=== PATIENT | female | born 2000 | race Caucasian/White ===

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

== ENCOUNTER 2021-02-10 15:49 | Emergency (ER) | payer OTHER ==
[2021-02-10 16:12] VITALS: BP 143/98; PULSE 79
[2021-02-10] MEDS ORDERED: Sodium Chloride 0.9% 10 ML Syringe FLUSH PRN (16:27)
[2021-02-10] MEDS ORDERED: HYDROmorphone 0.5 MG/0.5 ML Syringe IVPUSH ONE (16:28)
[2021-02-10] MEDS ORDERED: Sodium Chloride 0.9% 1,000 ML IV STA (16:28)
[2021-02-10] MEDS ORDERED: Ondansetron 4 MG/2 ML SDV IVPUSH ONE (16:28)
--- NOTE | 2021-02-10 16:55 | EDM.PDOC ---
ED HPI GENERAL MEDICAL PROBLEM - General Chief Complaint: Abdominal Pain Stated Complaint: ABDOMINAL PAIN Time Seen by Provider: 02/10/21 16:12 Source of Information: Reports: Patient, RN Notes Reviewed History Limitations: Reports: No Limitations - History of Present Illness INITIAL COMMENTS - FREE TEXT/NARRATIVE: Patient is a 20-year-old female presenting to ER for evaluation of right lower quadrant abdominal pain with associated nausea and vomiting. Symptoms began this morning. Reports they came on gradually. She reports urge to void, but is only able to go a few drops when she tries to go. She also reports the urge to have a bowel movement, however is unable to go when she tries. Reports last bowel movement was yesterday and that it was normal. She is on Nexplanon for control, but still feels there is a possibility that she could be . Reports that she was having problems with "hypoglycemia" yesterday which caused her to go home from work, however she was having no abdominal pain at that time. She denies any known fever, but states she has felt chilled. She has no history of previous abdominal surgeries. Denies any history of ovarian c ysts. Abdomen Pain Score (Numeric/FACES): 8 - Related Data Allergies Allergy/AdvReac Type Severity Reaction Status Date / Time animal dander Allergy Hives Verified 02/10/21 16:12 pollen extracts Allergy Shortness Verified 02/10/21 16:12 of Breath Home Meds: Home Meds Montelukast [Singulair] 10 mg PO BEDTIME 08/31/16 [History] Venlafaxine HCl [Venlafaxine ER] 225 mg PO DAILY 12/11/19 [History] Divalproex Sodium [Depakote] 250 mg PO DAILY 03/24/20 [History] Doxazosin [Cardura] 1 mg PO DAILY 03/24/20 [History] Ondansetron [Zofran ODT] 1 tab PO Q8H PRN #10 tab.dis 03/24/20 [Rx] Albuterol [Ventolin HFA] 2 puff INH Q6H PRN #1 inh 05/18/20 [Rx] Fluticasone Propion/Salmeterol [Advair 250-50 Diskus] 1 puff IH BID #1 blst.w.dev 05/18/20 [Rx] clonazePAM [Clonazepam] 0.5 mg PO BID 06/28/20 [History] Contro Implantn 1 ASDIRECTED 08/14/20 [History] Hydrocodone/Acetaminophen [Hydrocodone-Acetamin 5-325 mg] 1 each PO Q4H PRN #8 tablet 02/10/21 [Rx] Ondansetron [Zofran ODT] 4 mg PO Q6H PRN #10 tab.dis 02/10/21 [Rx] Past Medical History HEENT History: Reports: Allergic Rhinitis Cardiovascular History: Reports: None Respiratory History: Reports: Asthma Other Respiratory History: allergies Gastrointestinal History: Reports: None Genitourinary History: Reports: Renal Calculus, Other (See Below) [employer] 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 Musculoskeletal History: Reports: Other (See Below) Other Musculoskeletal History: small ACL tear of the right knee Neurological History: Reports: Seizure Other Neuro History: "trauma seizures" Psychiatric History: Reports: Anxiety, Bipolar, Depression, PTSD, Suicidal Ideation Other Psychiatric History: manic depression Endocrine/Metabolic History: Reports: None, Other (See Below) Other Endocrine/Metabolic History: fluctuating blood sugars Hematologic History: Reports: None Immunologic History: Reports: None Oncologic (Cancer) History: Reports: None Dermatologic History: Reports: None - Infectious Disease History Infectious Disease History: Reports: Novel Coronavirus - Past Surgical History HEENT Surgical History: Reports: None GI Surgical History: Reports: None Social & Family History - Family History Family Medical History: No Pertinent Family History - Tobacco Use Used Tobacco, but Quit: No - Caffeine Use Caffeine Use: Reports: None - Recreational Drug Use Recreational Drug Use: Yes Recreational Drug Type: Reports: Marijuana/Hashish Recreational Drug Use Frequency: Weekly - Living Situation & Occupation Living situation: Reports: Single, with Family Occupation: Employed ([employer] ED ROS GENERAL - Review of Systems Review Of Systems: Comprehensive ROS is negative, except as noted in HPI. ED EXAM, GI/ABD - Physical Exam Exam: See Below Exam Limited By: No Limitations General Appearance: Alert, WD/WN, No Apparent Distress Respiratory/Chest: No Respiratory Distress, Lungs Clear, Normal Breath Sounds, No Accessory Muscle Use, Chest Non-Tender Cardiovascular: Normal Peripheral Pulses, Regular Rate, Rhythm, No Edema, No Gallop, No JVD, No Murmur, No Rub GI/Abdominal Exam: Normal Bowel Sounds, Soft, No Organomegaly, No Distention, No Abnormal Bruit, No Mass, Pelvis Stable, Tender (localized RLQ.). No: Guarding, Rigid, Rebound Neurological: Alert, Oriented, Normal Cognition, Normal Gait, Normal Reflexes, No Motor/Sensory Deficits Psychiatric: Normal Affect, Normal Mood Skin Exam: Warm, Dry, Intact, Normal Color, No Rash Course - Vital Signs Last Recorded V/S: Last Vital Signs Temp 98.3 F 02/10/21 16:09 Pulse 79 02/10/21 16:09 Resp 16 02/10/21 16:09 BP 143/98 H 02/10/21 16:09 Pulse Ox 100 02/10/21 16:09 - Orders/Labs/Meds Orders: Active Orders 24 hr Category Date Time Status Peripheral IV Insertion Adult [OM.PC] Stat Oth 02/10/21 16:27 Ordered Labs: Laboratory Tests 02/10/21 02/10/21 02/10/21 Range/Units 17:38 17:38 17:38 WBC 10.85 H (3.98-10.04) K/mm3 RBC 5.25 H (3.98-5.22) M/mm3 Hgb 14.9 (11.2-15.7) gm/dl Hct 44.7 (34.1-44.9) % MCV 85.1 (79.4-94.8) fl MCH 28.4 (25.6-32.2) pg MCHC 33.3 (32.2-35.5) g/dl RDW Std Deviation 40.8 (36.4-46.3) fL Plt Count 293 (182-369) K/mm3 MPV 9.5 (9.4-12.3) fl Neut % (Auto) 83.7 H (34.0-71.1) % Lymph % (Auto) 11.2 L (19.3-51.7) % [place] % (Auto) 4.4 L (4.7-12.5) % Eos % (Auto) 0.4 L (0.7-5.8) Baso % (Auto) 0.2 (0.1-1.2) % Neut # (Auto) 9.08 H (1.56-6.13) K/mm3 Lymph # (Auto) 1.22 (1.18-3.74) K/mm3 [place] # (Auto) 0.48 H (0.24-0.36) K/mm3 Eos # (Auto) 0.04 (0.04-0.36) K/mm3 Baso # (Auto) 0.02 (0.01-0.08) K/mm3 Sodium 142 (136-145) mEq/L Potassium 4.1 (3.5-5.1) mEq/L Chloride 106 (98-107) mEq/L Carbon Dioxide 26 (21-32) mEq/L Anion Gap 14.1 (5-15) BUN 12 (7-18) mg/dL Creatinine 0.8 (0.55-1.02) mg/dL Est Cr Clr Drug Dosing 93.56 mL/min Estimated GFR (MDRD) > 60 (>60) mL/min BUN/Creatinine Ratio 15.0 (14-18) Glucose 94 (70-99) mg/dL Calcium 8.7 (8.5-10.1) mg/dL Total Bilirubin 0.5 (0.2-1.0) mg/dL AST 20 (15-37) U/L ALT 23 (14-59) U/L Alkaline Phosphatase 98 (46-116) U/L C-Reactive Protein <0.2 (<1.0) mg/dL Total Protein 7.5 (6.4-8.2) g/dl Albumin 3.7 (3.4-5.0) g/dl Globulin 3.8 gm/dL Albumin/Globulin Ratio 1.0 (1-2) HCG, Qual Negative (NEGATIVE) Urine Color (Yellow) Urine Appearance (Clear) Urine pH (5.0-8.0) Ur Specific [place] (1.005-1.030) Urine Protein (Negative) Urine Glucose (UA) (Negative) Urine Ketones (Negative) Urine Occult Blood (Negative) Urine Nitrite (Negative) Urine Bilirubin (Negative) Urine Urobilinogen (0.2-1.0) Ur Leukocyte Esterase (Negative) Urine RBC (0-5) /hpf Urine WBC (0-5) /hpf Ur Epithelial Cells (0-5) /hpf Urine Bacteria (FEW) /hpf Urine Mucus (FEW) /hpf SARS-CoV-2 RNA (ROSITA) (NEGATIVE) 02/10/21 02/10/21 Range/Units 17:57 18:13 WBC (3.98-10.04) K/mm3 RBC (3.98-5.22) M/mm3 Hgb (11.2-15.7) gm/dl Hct (34.1-44.9) % MCV (79.4-94.8) fl MCH (25.6-32.2) pg MCHC (32.2-35.5) g/dl RDW Std Deviation (36.4-46.3) fL Plt Count (182-369) K/mm3 MPV (9.4-12.3) fl Neut % (Auto) (34.0-71.1) % Lymph % (Auto) (19.3-51.7) % [place] % (Auto) (4.7-12.5) % Eos % (Auto) (0.7-5.8) Baso % (Auto) (0.1-1.2) % Neut # (Auto) (1.56-6.13) K/mm3 Lymph # (Auto) (1.18-3.74) K/mm3 [place] # (Auto) (0.24-0.36) K/mm3 Eos # (Auto) (0.04-0.36) K/mm3 Baso # (Auto) (0.01-0.08) K/mm3 Sodium (136-145) mEq/L Potassium (3.5-5.1) mEq/L Chloride (98-107) mEq/L Carbon Dioxide (21-32) mEq/L Anion Gap (5-15) BUN (7-18) mg/dL Creatinine (0.55-1.02) mg/dL Est Cr Clr Drug Dosing mL/min Estimated GFR (MDRD) (>60) mL/min BUN/Creatinine Ratio (14-18) Glucose (70-99) mg/dL Calcium (8.5-10.1) mg/dL Total Bilirubin (0.2-1.0) mg/dL AST (15-37) U/L ALT (14-59) U/L Alkaline Phosphatase (46-116) U/L C-Reactive Protein (<1.0) mg/dL Total Protein (6.4-8.2) g/dl Albumin (3.4-5.0) g/dl Globulin gm/dL Albumin/Globulin Ratio (1-2) HCG, Qual (NEGATIVE) Urine Color Yellow (Yellow) Urine Appearance Slt cloudy H (Clear) Urine pH 7.5 (5.0-8.0) Ur Specific [place] 1.020 (1.005-1.030) Urine Protein 1+ H (Negative) Urine Glucose (UA) Negative (Negative) Urine Ketones 1+ H (Negative) Urine Occult Blood 3+ H (Negative) Urine Nitrite Negative (Negative) Urine Bilirubin Negative (Negative) Urine Urobilinogen 0.2 (0.2-1.0) Ur Leukocyte Esterase Negative (Negative) Urine RBC >100 H (0-5) /hpf Urine WBC 0-5 (0-5) /hpf Ur Epithelial Cells 0-5 (0-5) /hpf Urine Bacteria Few (FEW) /hpf Urine Mucus Moderate H (FEW) /hpf SARS-CoV-2 RNA (ROSITA) Negative (NEGATIVE) Meds: Medications Discontinued Medications Generic Name Dose Route Start Last Admin Trade Name Freq PRN Reason Stop Dose Admin Hydromorphone HCl 0.5 mg 02/10/21 16:28 02/10/21 17:32 Hydromorphone 0.5 Mg/0.5 Ml Syringe IVPUSH 02/10/21 16:29 0.5 mg ONETIME ONE Administration Sodium Chloride 1,000 mls @ 150 mls/hr 02/10/21 16:28 02/10/21 17:32 Normal Saline IV 02/10/21 23:07 150 mls/hr NOW STA Administration Iopamidol 100 ml 02/10/21 18:08 02/10/21 18:28 Iopamidol 612 Mg/Ml 100 Ml Bottle IVPUSH 02/10/21 18:09 100 ml ONETIME ONE Administration Ondansetron HCl 4 mg 02/10/21 16:28 02/10/21 17:32 Ondansetron 4 Mg/2 Ml Sdv IVPUSH 02/10/21 16:29 4 mg ONETIME ONE Administration Sodium Chloride 10 ml 02/10/21 16:27 02/10/21 17:32 Sodium Chloride 0.9% 10 Ml Syringe FLUSH 10 ml ASDIRECTED PRN Administration Keep Vein Open Sodium Chloride 10 ml 02/10/21 18:08 02/10/21 18:28 Sodium Chloride 0.9% 10 Ml Syringe FLUSH 02/10/21 18:09 10 ml ONETIME ONE Administration - Re-Assessments/Exams Free Text/Narrative Re-Assessment/Exam: Patient is a 20-year-old female presenting to ER for evaluation of right lower quadrant abdominal pain with associated nausea and vomiting since this morning. Denies dysuria, but states that she has the urge to void but is unable to go. She also has the urge to have a bowel movement but does not go. On exam, she does have localized right lower quadrant abdominal tenderness. Exam is ot herwise unremarkable. I have ordered blood work, urinalysis, CT scan of the abdomen pelvis with contrast. I will give IV fluids of normal saline, Dilaudid for pain, Zofran for nausea. 02/10/21 20:54 Hematology significant for WBC minimally elevated at 10.5. Otherwise unremarkable. hCG is negative. Urinalysis negative for infection but did show 3+ occult blood and greater than one hundred RBCs. Covid is negative. CT scan of abdomen pelvis impression as follows: 1. Mild right hydronephrosis without evidence for Kol[place] obstructing stone. Findings may be secondary to urinary tract infection or recently passed stone. Please correlate clinically. Patient urine is negative for infection, but is positive for blood, indicating that she likely has passed a kidney stone. Results discussed with patient. Pain is improved, but she feels like it may be returning. Discussed that she may have some residual pain until kidney returns to normal. I will write short prescription of hydrocodone with Tylenol to be used. Discussed return precautions as well as follow-up recommendation in the clinic. She verbalized understanding. Discharge instructions as documented. Departure - Departure Time of Disposition: 20:54 Disposition: Home, Self-Care 01 Condition: Good Clinical Impression: Kidney stone on right side - Discharge Information *PRESCRIPTION DRUG MONITORING PROGRAM REVIEWED*: Yes *COPY OF PRESCRIPTION DRUG MONITORING REPORT IN PATIENT AYLIN: No Prescriptions: Hydrocodone/Acetaminophen [Hydrocodone-Acetamin 5-325 mg] 1 each PO Q4H PRN #8 tablet PRN Reason: Pain Ondansetron [Zofran ODT] 4 mg PO Q6H PRN #10 tab.dis PRN Reason: Nausea/Vomiting Instructions: Renal Colic, [id number] Referrals: Irene Marie NP [Primary Care Provider] - Forms: ED Department Discharge Additional Instructions: Take routine Tylenol and ibuprofen for pain. For pain not relieved by this, you may take one of the hydrocodone as prescribed. Do not work or drive for 12 hours after taking this medication as it can be sedating Use Zofran as needed for nausea. If pain fails to resolve over the next few days, recommend follow-up in the clinic. If you experience any new or worsening symptoms, please not hesitate to return to the emergency department for reevaluation. Sepsis Event Note (ED) - Evaluation Sepsis Screening Result: No Definite Risk - My Orders Last 24 Hours: My Active Orders 02/10/21 16:27 Peripheral IV Insertion Adult [OM.PC] Stat - Assessment/Plan Last 24 Hours: My Active Orders 02/10/21 16:27 Peripheral IV Insertion Adult [OM.PC] Stat
[2021-02-10] MEDS ORDERED: Sodium Chloride 0.9% 10 ML Syringe FLUSH ONE (18:08)
[2021-02-10] MEDS ORDERED: Iopamidol 612 MG/ML 100 ML Bottle IVPUSH ONE (18:08)
--- NOTE | 2021-02-11 10:04 | CT ---
EXAM: CT ABDOMEN WITH CONTRAST LOCATION: [facility] DATE/TIME: 02/10/2021 5:52 PM INDICATION: Abdominal pain COMPARISON: None. TECHNIQUE: CT scan of the abdomen was performed following injection of IV contrast. Multiplanar reformats were obtained. Dose reduction techniques were used. CONTRAST: ISO-300 100ML FINDINGS: LOWER CHEST: Small hiatal hernia. HEPATOBILIARY: Normal. PANCREAS: Normal. SPLEEN: Normal. ADRENAL GLANDS: Normal. KIDNEYS: Mild right hydronephrosis, delayed nephrogram, and perinephric edema. Mild periureteric inflammatory change and ureteral enhancement also present. Punctate 1 mm nonobstructing stone within the lower pole of the right kidney. Otherwise no urinary tract calcification. No renal mass or left-sided urinary obstruction. Urinary bladder relatively collapsed. BOWEL: No free air, free fluid, or inflammatory change. No bowel obstruction. Normal appendix. LYMPH NODES: Normal. VASCULATURE: Unremarkable. MUSCULOSKELETAL: Normal. IMPRESSION: 1. Mild right hydronephrosis without evidence for culprit obstructing stone. Findings may be secondary to urinary tract infection or recently passed stone, please correlate clinically SIGNED BY: Eric Romero MD 02/10/2021 8:01 PM [facility]
== END 2021-02-10 21:24 | disposition home or self-care (01) ==
LOC: JD.ED 15:49
DX: N13.2 Hydronephrosis with renal and ureteral calculous obstruction (principal); J45.909 Unspecified asthma, uncomplicated; Z91.048 Other nonmedicinal substance allergy status; Z79.899 Other long term (current) drug therapy; Z20.822 Contact with and (suspected) exposure to COVID-19
CPT/HCPCS: 36415; 74177; 80053; 81001; 84703; 85025; 86140; 87635; 96374; 96375; 99284; J1170; J2405; J7030; Q9967; U0002

== ENCOUNTER 2021-11-03 03:01 | Emergency (ER) | payer OTHER, MEDICAID ==
[2021-11-03 03:24] VITALS: BP 124/81; PULSE 101
[2021-11-03] MEDS ORDERED: Ketorolac 15 MG/ML SDV IM ONE (03:42)
== END 2021-11-03 04:43 | disposition home or self-care (01) ==
LOC: JD.ED 03:01
DX: N39.0 Urinary tract infection, site not specified (principal); F17.210 Nicotine dependence, cigarettes, uncomplicated; F41.9 Anxiety disorder, unspecified; F32.A Depression, unspecified; Z79.899 Other long term (current) drug therapy; Z91.048 Other nonmedicinal substance allergy status
CPT/HCPCS: 81001; 81025; 96372; 99284; J1885; 99283

== ENCOUNTER 2022-01-16 05:53 | Emergency (ER) | payer MEDICAID ==
[2022-01-16] MEDS ORDERED: Albuterol/Ipratropium 3.0-0.5 MG/3 ML Neb Soln NEB ONE (06:07)
[2022-01-16 07:13] VITALS: BP 118/83; PULSE 107
== END 2022-01-16 07:13 | disposition home or self-care (01) ==
LOC: JD.ED 05:53
DX: J45.901 Unspecified asthma with (acute) exacerbation (principal)
CPT/HCPCS: 94640; 99285; J7620-GY